=== PATIENT | female | born 1975 | race Two or more races ===

== ENCOUNTER 2025-02-16 06:51 | Day surgery (SDC) | payer OTHER ==
[~2025-02-16 06:51] MED LIST: CARAFATE1 GM PO; GLIMEPIRIDE4 M1 PO; INVOKAMET 150-1 EACH PO; JANUVIA100 MG PO; VALSARTAN40 MG PO; ZETIA10 MG PO
[2025-02-16] MEDS ORDERED: MACROBID 100 M100 MG PO (10:17)
[2025-02-16] MEDS ORDERED: TRAM1TAB98 PO (10:18)
[2025-02-16] MEDS ORDERED: LIDOCAINE HCL 1%/EPINEPHRINE 20ML VIAL IJ ONE ×3 (10:30)
[2025-02-16] MEDS ORDERED: CEFAZOLIN SODIUM 1,000 MG VIAL IV SCH (10:30)
== END 2025-02-16 14:40 | disposition home or self-care (01) ==
LOC: CIR.AMB 06:51
PROVIDERS: ATTEND Obstetrics & Gynecology Gynecology
DX: N39.3 Stress incontinence (female) (male) (principal)
CPT/HCPCS: 57288; C1771